=== PATIENT | male | born 1985 | race African-American/Black ===

== ENCOUNTER 2017-05-12 04:42 | Emergency (ER) | payer OTHER ==
[2017-05-12 04:43] VITALS: BP 156/92; PULSE 77; RESP 16; TEMP 99.1; O2SAT 97
[2017-05-12] MEDS ORDERED: KETOROLAC TROMETHAMINE 30 MG/ML (IVP) VIAL IVP ONE (05:15)
--- NOTE | 2017-05-12 05:24 | PD ---
HPI Chief Complaint: Complaint Time Seen by Provider: 05:04 Travel History International Travel<30 days: No Contact w/Intl Traveler<30days: No Traveled to known affect area: No History of Present Illness HPI Patient is a 32-year-old male who presents to emergency room with multiple complaints. Reports that since January, he has been waking up every night with night sweats. Patient denies any fevers or chills, reports that he would wake up in his bedsheets would be wet. Patient denies any recent travels or trips, denies any sick contacts. Patient reports that he woke up this morning with increased sweats. Patient also reports that he has been having intermittent frontal headaches for the past few weeks. Patient reports that he has not taken any medications for his headache, reports that he has a mild frontal headache at this time. Patient denies any vision changes, reports that this is not the worst headache of his life, denies thunderclap headache. Reports no new stressors other than his work, reports that he is unsure why he has frontal headache. Patient denies any trauma or fall. Patient also reports that tonight when he got up to use the restroom, he had dysuria. Patient reports that he is sexually active, denies history of STDs in the past. PFSH Past Medical History Medical History: Denies Significant Hx ?: Not Past Surgical History Surgical History: No Previous Surgery Social History Alcohol Use: Yes (SOCIAL ) Tobacco Use: No Substance Use: No Allergies-Medications (Allergen,Severity, Reaction): Coded Allergies: No Known Allergies (Unverified , 05/12/17) Reported Meds & Prescriptions Reported Meds & Active Scripts Active Macrobid (Nitrofurantoin Monoh/Nitrofur Macro) 100 Mg Cap 100 Mg PO BID 10 Days Review of Systems General / Constitutional: No: Fever Eyes: No: Visual changes HENT: Positive: Headaches Cardiovascular: No: Chest Pain or Discomfort Respiratory: No: Shortness of Breath Gastrointestinal: No: Abdominal Pain Genitourinary: Positive: Dysuria Musculoskeletal: No: Pain Skin: No Rash Neurologic: No: Weakness Psychiatric: No: Depression Endocrine: No: Polydipsia Hematologic/Lymphatic: No: Easy Bruising Physical Exam Narrative GENERAL: No acute distress, nontoxic SKIN: Focused skin assessment warm/dry. HEAD: Atraumatic. Normocephalic. EYES: Pupils equal and round. No scleral icterus. No injection or drainage. ENT: No nasal bleeding or discharge. Mucous membranes pink and moist. NECK: Trachea midline. No JVD. CARDIOVASCULAR: Regular rate and rhythm. No murmur appreciated. RESPIRATORY: No accessory muscle use. Clear to auscultation. Breath sounds equal bilaterally. GASTROINTESTINAL: Abdomen soft, non-tender, nondistended. Hepatic and splenic margins not palpable. MUSCULOSKELETAL: No obvious deformities. No clubbing. No cyanosis. No edema. NEUROLOGICAL: Awake and alert. No obvious cranial nerve deficits. Motor grossly within normal limits. Normal speech. PSYCHIATRIC: Appropriate mood and affect; insight and judgment normal. Data Data Last Documented VS Vital Signs Date Time Temp Pulse Resp B/P (MAP) Pulse Ox O2 Delivery O2 Flow Rate FiO2 05/12/17 04:43 99.1 77 16 156/92 (113) 97 Room Air Orders Orders Gc And Chlamydia Pcr (05/12/17 04:50) Urinalysis - C+S If Indicated (05/12/17 04:50) Complete Blood Count With Diff (05/12/17 05:12) Comprehensive Metabolic Panel (05/12/17 05:12) Iv Access Insert/Monitor (05/12/17 05:12) Ketorolac Inj (Toradol Inj) (05/12/17 05:15) Urine Culture (05/12/17 05:05) Azithromycin Powd Pack (Zithromax Powd P (05/12/17 05:45) Lidocaine 1% Inj (50 Ml) (Xylocaine 1% I (05/12/17 05:45) Ceftriaxone Inj (Rocephin Inj) (05/12/17 05:45) Ondansetron Inj (Zofran Inj) (05/12/17 07:30) Comprehensive Metabolic Panel (05/12/17 06:16) Labs Laboratory Tests Test 05/12/17 05:05 05/12/17 05:35 05/12/17 06:16 Urine Color YELLOW Urine Turbidity CLEAR Urine pH 5.5 Urine Specific [place] 1.023 Urine Protein NEG mg/dL Urine Glucose (UA) NEG mg/dL Urine Ketones NEG mg/dL Urine Occult Blood NEG Urine Nitrite NEG Urine Bilirubin NEG Urine Urobilinogen LESS THAN 2.0 MG/DL Urine Leukocyte Esterase MOD Urine RBC 9 /hpf Urine WBC 28 /hpf Urine Squamous Epithelial Cells <1 /hpf Urine Mucus FEW /lpf Microscopic Urinalysis Comment CULTURE INDICATED White Blood Count 3.5 TH/MM3 Red Blood Count 6.10 MIL/MM3 Hemoglobin 17.7 GM/DL Hematocrit 52.5 % Mean Corpuscular Volume 86.0 FL Mean Corpuscular Hemoglobin 28.9 PG Mean Corpuscular Hemoglobin Concent 33.7 % Red Cell Distribution Width 13.6 % Platelet Count 183 TH/MM3 Mean Platelet Volume 8.5 FL Neutrophils (%) (Auto) 46.3 % Lymphocytes (%) (Auto) 35.1 % Monocytes (%) (Auto) 17.3 % Eosinophils (%) (Auto) 0.8 % Basophils (%) (Auto) 0.5 % Neutrophils # (Auto) 1.6 TH/MM3 Lymphocytes # (Auto) 1.2 TH/MM3 Monocytes # (Auto) 0.6 TH/MM3 Eosinophils # (Auto) 0.0 TH/MM3 Basophils # (Auto) 0.0 TH/MM3 CBC Comment DIFF FINAL Differential Comment Blood Urea Nitrogen MG/DL 16 MG/DL Creatinine MG/DL 1.17 MG/DL Random Glucose MG/DL 86 MG/DL Total Protein GM/DL 7.9 GM/DL Albumin GM/DL 3.7 GM/DL Calcium Level MG/DL 8.2 MG/DL Alkaline Phosphatase U/L 53 U/L Aspartate Amino Transf (AST/SGOT) U/L 91 U/L Alanine Aminotransferase (ALT/SGPT) U/L 35 U/L Total Bilirubin MG/DL 0.4 MG/DL Sodium Level MEQ/L 138 MEQ/L Potassium Level MEQ/L 4.3 MEQ/L Chloride Level MEQ/L 107 MEQ/L Carbon Dioxide Level MEQ/L 23.8 MEQ/L Anion Gap MEQ/L 7 MEQ/L Estimat Glomerular Filtration Rate ML/MIN 89 ML/MIN [facility] Medical Decision Making Medical Screen Exam Complete: Yes Emergency Medical Condition: Yes Medical Record Reviewed: Yes Interpretation(s) Vital Signs Date Time Temp Pulse Resp B/P (MAP) Pulse Ox O2 Delivery O2 Flow Rate FiO2 05/12/17 04:43 99.1 77 16 156/92 (113) 97 Room Air Differential Diagnosis Differential includes migraine, electrolyte abnormality, uti, urethritis, parasitic infection though unlikely as patient has no risk factors Narrative Course 32-year-old male who presents to emergency room with multiple complaints. Patient reports that since January, he has been waking up every night with night sweats, reports that he woke up tonight with night sweats with no fevers but because concerned as he has a frontal headache and dysuria. Vital Signs Date Time Temp Pulse Resp B/P (MAP) Pulse Ox O2 Delivery O2 Flow Rate FiO2 05/12/17 04:43 99.1 77 16 156/92 (113) 97 Room Air Vital signs are stable - patient is afebrile, patient with no neurological deficits at this time. Patient has not taken any acetaminophen or Motrin for his headache, plan to give a dose of IV Toradol. Patient with no recent travels or trips, no fevers or chills, patient is nontoxic appearing. Plan to obtain CBC, CMP. UA and G/C. Patient requested to be treated for possible G/C. Laboratory Tests Test 05/12/17 05:05 05/12/17 05:35 Urine Color YELLOW (YELLW/STRAW) Urine Turbidity CLEAR (CLEAR) Urine pH 5.5 (5.0-8.5) Urine Specific [place] 1.023 (1.002-1.035) Urine Protein NEG mg/dL (NEG-TRACE) Urine Glucose (UA) NEG mg/dL (NEG) Urine Ketones NEG mg/dL (NEG) Urine Occult Blood NEG (NEG) Urine Nitrite NEG (NEG) Urine Bilirubin NEG (NEG) Urine Urobilinogen LESS THAN 2.0 MG/DL (LESS Urine Leukocyte Esterase MOD (NEG) Urine RBC 9 /hpf (0-3) Urine WBC 28 /hpf (0-5) Urine Squamous Epithelial Cells <1 /hpf (0-5) Urine Mucus FEW /lpf (OCC) Microscopic Urinalysis Comment CULTURE INDICATED White Blood Count 3.5 TH/MM3 (4.0-11.0) Red Blood Count 6.10 MIL/MM3 (4.50-5.90) Hemoglobin 17.7 GM/DL (13.0-17.0) Hematocrit 52.5 % (39.0-51.0) Mean Corpuscular Volume 86.0 FL (80.0-100.0) Mean Corpuscular Hemoglobin 28.9 PG (27.0-34.0) Mean Corpuscular Hemoglobin Concent 33.7 % (32.0-36.0) Red Cell Distribution Width 13.6 % (11.6-17.2) Platelet Count 183 TH/MM3 (150-450) Mean Platelet Volume 8.5 FL (7.0-11.0) Neutrophils (%) (Auto) 46.3 % (16.0-70.0) Lymphocytes (%) (Auto) 35.1 % (9.0-44.0) Monocytes (%) (Auto) 17.3 % (0.0-8.0) Eosinophils (%) (Auto) 0.8 % (0.0-4.0) Basophils (%) (Auto) 0.5 % (0.0-2.0) Neutrophils # (Auto) 1.6 TH/MM3 (1.8-7.7) Lymphocytes # (Auto) 1.2 TH/MM3 (1.0-4.8) Monocytes # (Auto) 0.6 TH/MM3 (0-0.9) Eosinophils # (Auto) 0.0 TH/MM3 (0-0.4) Basophils # (Auto) 0.0 TH/MM3 (0-0.2) CBC Comment DIFF FINAL Differential Comment UA positive for 28wbc, mod leuk esterase - gc sent. Plan to treat for possible GC, will also treat for UTI. Patient understands need to refrain from sexual intercourse until all cultures are resulted, he understands that if GC cultures are positive, all sexual partners will need to be treated. Patient with complete resolution of headache at this time. He will follow up with pcp and will return to ER as needed. Diagnosis Primary Impression: Urethritis Additional Impression: UTI (urinary tract infection) Patient Instructions: General Instructions Additional Instructions: Please follow-up with all cultures from today Please follow-up with your primary care doctor Please return to the emergency room as needed Please return to the emergency room if symptoms worsen or progress Please refrain from sexual intercourse until all cultures have been resulted, if cultures are positive, then all sexual parties will need to be treated Scripts Nitrofurantoin Monohydrate Macrocrystals (Macrobid) 100 Mg Cap 100 MG PO BID for Infection for 10 Days, #20 CAP 0 Refills Prov: Ellen Leal DO 05/12/17 Disposition: 01 DISCHARGE HOME Condition: Stable Ellen Leal DO May 12, 2017 05:24
[2017-05-12 05:35] LABS: BLOOD, URINE NEG (NEG); COMMENT (UR) CULTURE INDICATED; CULTURE IF INDICATED CULTURE INDICATED; GLUCOSE,URINE NEG (NEG); KETONE, URINE NEG (NEG); MUCUS URINE FEW /lpf (OCC); NITRITE,URINE NEG (NEG); PH, URINE 5.5 (5.0-8.5); SQUAMOUS EPITHELIAL CELL URINE <1 /hpf (0-5); URINE COLOR YELLOW (YELLW/STRAW)
[2017-05-12 05:44] LABS: AUTOMATED NEUTROPHIL # 1.6 TH/MM3 (1.8-7.7); BASOPHIL % 0.5 % (0.0-2.0); EOSINOPHIL % 0.8 % (0.0-4.0); HEMATOCRIT 52.5 % (39.0-51.0); HEMO FLAGS DIFF FINAL; LYMPH % 35.1 % (9.0-44.0); LYMPHOCYTE # 1.2 TH/MM3 (1.0-4.8); MEAN CORPUSCULAR HEMOGLOBIN 28.9 PG (27.0-34.0); MEAN CORPUSCULAR HGB CONC 33.7 % (32.0-36.0); MONO % 17.3 % (0.0-8.0); NEUT % 46.3 % (16.0-70.0); PLATELET COUNT 183 TH/MM3 (150-450); RED CELL DISTRIBUTION WIDTH 13.6 % (11.6-17.2); WHITE BLOOD COUNT 3.5 TH/MM3 (4.0-11.0)
[2017-05-12] MEDS ORDERED: LIDOCAINE HCL 1% 50 ML VIAL IM ONE (05:45)
[2017-05-12] MEDS ORDERED: AZITHROMYCIN PWD FOR SUSP 1 GM PACKET PO ONE (05:45)
[2017-05-12] MEDS ORDERED: MACR100C2 PO (06:04)
[2017-05-12] MEDS ORDERED: ONDANSETRON HCL 4 MG/2 ML VIAL IV PUSH ONE (07:30)
[2017-05-12 07:33] LABS: ALKALINE PHOSPHATASE 53 U/L (45-117); ALT (GPT) 35 U/L (12-78); ANION GAP 7 MEQ/L (5-15); AST (GOT) 91 U/L (15-37); BICARBONATE 23.8 MEQ/L (21.0-32.0); BLOOD UREA NITROGEN 16 MG/DL (7-18); CHLORIDE 107 MEQ/L (98-107); GLOMERULAR FILTRATION RATE 89 ML/MIN (>89); POTASSIUM 4.3 MEQ/L (3.5-5.1); SODIUM (NA) 138 MEQ/L (136-145); TOTAL BILIRUBIN ADULT 0.4 MG/DL (0.2-1.0)
[2017-05-12 08:16] LABS: CHLAMYDIA PCR NOT DETECTED (NOT DETECT); NEISSERIA PCR NOT DETECTED (NOT DETECT)
== END 2017-05-12 07:48 | disposition home or self-care (01) ==
LOC: NEPC 04:42
DX: N34.2 Other urethritis (principal); N39.0 Urinary tract infection, site not specified; R61 Generalized hyperhidrosis
CPT/HCPCS: 80053; 81001; 85025; 87086; 87491; 87591; 96372; 96374; 96375; 99284; J0696; J1885; J2405

== ENCOUNTER 2017-10-10 22:05 | Emergency (ER) | payer OTHER ==
[~2017-10-10] VITALS: Ht 175.3 cm; Wt 95.0 kg
[2017-10-10 22:19] VITALS: BP 155/87; PULSE 70; RESP 18; TEMP 98.7; O2SAT 99
[2017-10-10] MEDS ORDERED: DICL75TA PO (22:59)
[2017-10-10] MEDS ORDERED: CYCL10TA PO (22:59)
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
== END 2017-10-10 23:37 | disposition home or self-care (01) ==
LOC: NEPK 22:05
DX: S16.1XXA Strain of muscle, fascia and tendon at neck level, initial encounter (principal); S46.911A Strain of unspecified muscle, fascia and tendon at shoulder and upper arm level, right arm, initial encounter; V43.52XA Car driver injured in collision with other type car in traffic accident, initial encounter; Y92.410 Unspecified street and highway as the place of occurrence of the external cause; Z72.0 Tobacco use
CPT/HCPCS: 72040; 73030; 99283